=== PATIENT | female | born 1980 | race Caucasian/White ===

== ENCOUNTER 2016-02-24 11:44 | Emergency (ER) | payer OTHER ==
[~2016-02-24] VITALS: Ht 180.3 cm; Wt 80.0 kg
[~2016-02-24 11:44] MED LIST: PREN1CAP17 PO
[2016-02-24 11:46] VITALS: BP 129/62; PULSE 70; RESP 20; TEMP 98; O2SAT 97
[2016-02-24] MEDS ORDERED: PENI500T PO (12:29)
--- NOTE | 2016-02-24 12:30 | PD ---
HPI Chief Complaint: ENT Complaint Time Seen by Provider: 12:27 Travel History International Travel<30 days: No Contact w/Intl Traveler<30days: No Traveled to known affect area: No History of Present Illness HPI 35-year-old female presents to the emergency department for evaluation of a sore throat that started yesterday. Patient is unsure if she has run a fever. She has associated body aches. She denies any chronic medical problems. She takes a vitamin. Patient has a at home, but states she is not currently breast-feeding. Patient denies any other complaints at this time. PFSH Past Medical History ?: Not Social History Alcohol Use: No Tobacco Use: No Substance Use: No Allergies-Medications (Allergen,Severity, Reaction): Coded Allergies: No Known Allergies (Unverified , 02/24/16) Reported Meds & Prescriptions Reported Meds & Active Scripts Active Reported Prenate Pixie 10-0.6-0.4-200 mg ( W/O A W/ Fe Asparto G) 1 Cap Cap PO DAILY Review of Systems Except as stated in HPI: all other systems reviewed are Neg Physical Exam Narrative GENERAL: Well-developed well-nourished female patient, ambulatory. Afebrile. SKIN: Warm and dry. HEAD: Normocephalic. Atraumatic. ENT: Mucosa pink and moist. Bilateral tonsils are erythematous with exudates. No peritonsillar abscess. No uvular edema. No uvular, palatal, or tonsillar deviation. Airway patent. Nasal turbinates appear normal without nasal blood, purulent drainage or septal hematoma. Bilateral tympanic membranes are clear without erythema or perforation. EYES: No scleral icterus. No injection or drainage. NECK: Supple, trachea midline. No JVD or lymphadenopathy. CARDIOVASCULAR: Regular rate and rhythm without murmurs, gallops, or rubs. RESPIRATORY: Breath sounds equal bilaterally. No accessory muscle use. Lungs sounds are clear to auscultation. MUSCULOSKELETAL: No cyanosis, or edema. Data Data Last Documented VS Vital Signs Date Time Temp Pulse Resp B/P Pulse Ox O2 Delivery O2 Flow Rate FiO2 02/24/16 11:46 98.0 70 20 129/62 97 Room Air MDM Medical Decision Making Medical Screen Exam Complete: Yes Emergency Medical Condition: Yes Medical Record Reviewed: Yes Differential Diagnosis Strep pharyngitis versus viral pharyngitis versus URI Narrative Course 35-year-old female presents to the emergency department for evaluation of sore throat since yesterday. Physical exam reveals bilateral tonsils are erythematous with exudates. Patient will be discharged with a prescription for Pen-Vee K. She is instructed to do warm saltwater gargles and take Tylenol or ibuprofen [id number] as needed. Patient is agreeable to this plan. Diagnosis Primary Impression: Exudative pharyngitis Referrals: Primary Care Physician call for appointment Patient Instructions: General Instructions, Pharyngitis (ED) Additional Instructions: Take antibiotic as directed until gone. Warm salt water gargles. [id number] Tylenol or ibuprofen as needed for pain. Follow up with a primary care physician. Return to the emergency department for any acute worsening of symptoms. Med/Other Pt SpecificInfo: Prescription(s) given Scripts Penicillin V Potassium 500 Mg Yjh600 Mg PO Q8H 10 Days Ref 0 Prov:Pauline Ibarra 02/24/16 Disposition: 01 DISCHARGE HOME Condition: Stable Pauline Ibarra Feb 24, 2016 12:30
== END 2016-02-24 12:41 | disposition home or self-care (01) ==
LOC: NEPB 11:44
DX: J02.9 Acute pharyngitis, unspecified (principal)
CPT/HCPCS: 99283

== ENCOUNTER → 2016-03-01 | Day surgery (SDC) | payer OTHER ==
--- NOTE | 2016-02-24 12:37 | MH ---
cc: ILANA VARMA MD, LAURA C. CHAPPIUS, SUSAN DATE OF ADMISSION 03/01/2016 DATE OF 1980 REASON FOR ADMISSION Surgical sterilization HISTORY OF PRESENT ILLNESS The patient is a 35-year-old white female 3, para 3. She is approximately six weeks and wants to proceed with a tubal ligation. We discussed the options for other forms of contraception and she has made an informed choice to proceed with tubal ligation. PAST MEDICAL HISTORY Negative for heart, lung, liver disease, hypertension, diabetes, or stroke. PAST SURGICAL HISTORY Breast augmentation SOCIAL HISTORY No recent smoking. No alcohol or drugs. FAMILY HISTORY Noncontributory GYNECOLOGIC HISTORY No STD's or abnormal Pap smears. OBSTETRICAL HISTORY Three vaginal deliveries. ALLERGIES None REVIEW OF SYSTEMS As above. No chest pain, orthopnea, or PND. PHYSICAL EXAM VITAL SIGNS: She is afebrile. Vital signs are stable, blood pressure is 120/70, height 5 foot 11 inches, weight is 170, BMI is 23.4. GENERAL: The patient is alert and oriented in no acute distress. No sign of cognitive dysfunction or depression. HEENT: Within normal limits. NECK: Supple. No JVD. CHEST: Clear. HEART: Regular rate and rhythm. ABDOMEN: Soft and nontender. No hepatosplenomegaly. No CVA tenderness. PELVIC: Exam will be detailed under anesthesia. EXTREMITIES: Normal. Skin rashes. NEUROLOGIC: Nonfocal. No DVT signs. ASSESSMENT Patient with multiparity desires sterilization. We discussed options for management and treatment including reversible methods of contraception, male methods of contraception, surgical methods are discussed in detail. At this point, the patient has made an informed choice to proceed with laparoscopic tubal ligation or salpingectomy. Patient is aware of the risks, benefits and alternatives. She is aware that the failure rate is low, but no 0. She is also aware of potential surgical risks. She is also aware of the irreversibility of the procedure. Issues regarding regret are discussed and I think she is has made an informed choice to proceed. At this point, we will use DVT prophylaxis with sequential compression device and antibiotic coverage with Ancef 1 gram IV. Anticipate outpatient procedure. MD CYNTHIA Rios/KAMI /11:42 AM /12:24 PM
[~2016-03-01] VITALS: Ht 180.3 cm; Wt 79.1 kg
[~2016-03-01] MED LIST changes: +ACETAMINOPHEN 1000 MG/100 ML VIAL IV ONE; +DO NOT ADM ANY ANTICOAGULANT DRUGS XX PRN; +INSULIN HUMAN REGULAR 1,000 UNITS/10 ML VIAL SQ PRN; +KETOROLAC TROMETHAMINE 10 MG TAB PO PRN; +KETOROLAC TROMETHAMINE 30 MG/ML (IVP) VIAL IV PUSH PRN; +KETOROLAC TROMETHAMINE 60 MG/2 ML (IM) VIAL IM ONE; +LACTATED RINGER'S 1000 ML INJ 1,000 ML IV ONE; +LACTATED RINGER'S 1000 ML IV SCH; +LIDOCAINE 1%/EPINEPHrine 1:100,000 SOLN 20 ML VIAL ONE; +METOPROLOL TARTRATE 25 MG TAB PO PRN; +MIDAZOLAM HCL 2 MG/2 ML VIAL ONE; +ONDANSETRON HCL 4 MG/2 ML VIAL IV PUSH ONE; +ONDANSETRON HCL 4 MG/2 ML VIAL IV PUSH PRN; +PROPOFOL 200 MG/20 ML AMP IV ONE; +SODIUM CHLORID 0.9% 500 ML IV SCH; +SUGAMMADEX SODIUM 200 MG/2 ML VIAL IV PUSH ONE; +ceFAZolin 1,000 MG/NS 100 ML IV SCH; +fentaNYL CITRATE 250 MCG/5 ML AMP ONE
[2016-03-01 07:05] VITALS: BP 112/78; PULSE 67; RESP 16; TEMP 98.1; O2SAT 98
[2016-03-01 12:35] VITALS: BP 117/83; PULSE 55; RESP 16; TEMP 97.7; O2SAT 100
--- NOTE | 2016-03-07 14:10 | MP ---
cc: ILANA VARMA MD,VANESA SHAFER DATE OF SURGERY 03/01/2016 PREOPERATIVE DIAGNOSIS Multiparity. Desires sterilization. POSTOPERATIVE DIAGNOSES 1. Multiparity. Desires sterilization. 2. Left paratubal cyst. 3. Right ovarian cyst, simple cyst 5-cm with paratubal adhesions. 4. Elevated liver functions on preoperative lab testing. PROCEDURE 1. Laparoscopic bilateral salpingectomy. 2. Laparoscopic ovarian cystotomy. SURGEON Dr. Varma ANESTHESIA General endotracheal. BLOOD LOSS 5 cc. URINE OUTPUT 200 cc. CHEMISTRY PROFESSOR [place] staff x 1. FINDINGS External genitalia normal. POP-Q score: Aa is -2, Ap is 0. Point C is -5. Total vaginal length is 10. Genital hiatus is 10. Perineal body is 4. Uterus is retroverted, mobile. Internal anatomy shows approximately 5-cm, smooth simple cyst under the right ovary, very mobile infundibulopelvic ligament although there was no torsion noted. Tube was adhered to the ovarian cyst on the right side. There were small paratubal cysts on the left as well. Upper abdomen showed liver with perhaps some mild to moderate scarring on the capsule. The gallbladder appeared to be normal. The remainder of the pelvis was unremarkable. SPECIMENS Right and left tubes. COMPLICATIONS None. DISPOSITION To recovery room stable. COUNTS Needle and sponge counts correct. DRAINS Givens catheter. DVT PROPHYLAXIS Sequential compression device. ANTIBIOTIC PROPHYLAXIS Ancef 1 gram. DISPOSITION Recovery room stable. INTRAOPERATIVE BLOOD WORK Hepatitis panel obtained. INDICATIONS FOR PROCEDURE The patient with multiparity, desires sterilization, has failed other reversible methods of contraception, has completed childbearing. The patient has no prior history of hepatic disease, although we noted on her preoperative liver function tests that they are elevated in the low 100s. PROCEDURE PERFORMED The patient was taken to the operating room theatre, prepped and draped in a fashion appropriate for the planned procedure. She was in dorsal lithotomy position with careful attention paid to placement of legs in the stirrups to avoid undue stress to sensitive neurovascular structures. Above findings noted. Neurovascular integrity documented. Givens catheter was placed. The umbilicus was infiltrated with epinephrine lidocaine solution. A small incision was made in the umbilicus, a 5-mm scope was placed under direct visualization, gas insufflated, the above findings noted. Trendelenburg position instituted. Auxiliary trocars were placed, an 8-mm trocar suprapubically under direct visualization using a needle as a guide and on the left side, a 5-mm just above the iliac crest a trocar was placed under direct visualization. The uterus is retroverted. The left tube showed multiple small benign-appearing paratubal cysts. The ovary itself was unremarkable. The ovary was mobile. The tube on the left was taken down with harmonic energy in standard salpingectomy technique without complication. The right tube and ovary were a bit more complex. The tube was wrapped around the ovary. This ovary was approximately 5 cm, appeared to be a simple cyst but the IP ligament was quite long and there was concern for possible torsion, although there was no torsion identified at this point. The tube was removed with standard harmonic energy. The ovary was inspected with smooth outer cortex. The ovary was drained with a yellow saffron type fluid. No sign of any dermoid or any mucinous component. The internal capsule had a retina-like appearance, very benign appearing and, in light of the patient's age and benign-appearing nature, the ovary was not removed. Hemostasis was confirmed with reduction of gas pressure. We did place hemostatic powder for reassurance. The upper abdomen was imaged or was inspected in light of her elevated liver functions. The liver capsule appeared to be mild to moderately scarred but the gallbladder appeared to be normal and we obtained intraoperative hepatitis panel blood work. The patient's incisions were closed 4-0 Monocryl and Dermabond. The patient was reversed from anesthesia, taken to the recovery room in stable condition. We will check the results of the hepatitis panel and refer her as need be based on findings. MD CYNTIHA Rios/FRANKLIN /11:12 AM /1:54 PM
== END | disposition home or self-care (01) ==
LOC: HSDC 06:55
PROVIDERS: ATTEND Obstetrics & Gynecology Gynecology
DX: Z30.2 Encounter for sterilization (principal); N83.8 Other noninflammatory disorders of ovary, fallopian tube and broad ligament; N83.291 Other ovarian cyst, right side
CPT/HCPCS: 00840; 58661; 58679; 80074; 84703; 88302; J0131; J0690; J1885; J2250; J2405; J3010; J7120

== ENCOUNTER 2016-03-03 16:45 | Emergency (ER) | payer OTHER ==
[~2016-03-03] VITALS: Ht 180.3 cm; Wt 80.0 kg
[~2016-03-03 16:45] MED LIST changes: -ACETAMINOPHEN 1000 MG/100 ML VIAL IV ONE; -DO NOT ADM ANY ANTICOAGULANT DRUGS XX PRN; -INSULIN HUMAN REGULAR 1,000 UNITS/10 ML VIAL SQ PRN; -KETOROLAC TROMETHAMINE 10 MG TAB PO PRN; -KETOROLAC TROMETHAMINE 30 MG/ML (IVP) VIAL IV PUSH PRN; -KETOROLAC TROMETHAMINE 60 MG/2 ML (IM) VIAL IM ONE; -LACTATED RINGER'S 1000 ML INJ 1,000 ML IV ONE; -LACTATED RINGER'S 1000 ML IV SCH; -LIDOCAINE 1%/EPINEPHrine 1:100,000 SOLN 20 ML VIAL ONE; -METOPROLOL TARTRATE 25 MG TAB PO PRN; -MIDAZOLAM HCL 2 MG/2 ML VIAL ONE; -ONDANSETRON HCL 4 MG/2 ML VIAL IV PUSH ONE; -ONDANSETRON HCL 4 MG/2 ML VIAL IV PUSH PRN; -PROPOFOL 200 MG/20 ML AMP IV ONE; -SODIUM CHLORID 0.9% 500 ML IV SCH; -SUGAMMADEX SODIUM 200 MG/2 ML VIAL IV PUSH ONE; -ceFAZolin 1,000 MG/NS 100 ML IV SCH; -fentaNYL CITRATE 250 MCG/5 ML AMP ONE
[2016-03-03 16:47] VITALS: BP 133/78; PULSE 55; RESP 20; TEMP 97.6; O2SAT 98
[2016-03-03 17:27] LABS: AUTOMATED NEUTROPHIL # 3.9 TH/MM3 (1.8-7.7); BASOPHIL % 0.6 % (0.0-2.0); EOSINOPHIL # 0.1 TH/MM3 (0-0.4); EOSINOPHIL % 2.4 % (0.0-4.0); HEMATOCRIT 36.1 % (35.0-46.0); HEMO FLAGS DIFF FINAL; LYMPH % 25.9 % (9.0-44.0); LYMPHOCYTE # 1.6 TH/MM3 (1.0-4.8); MEAN CELL VOLUME 91.1 FL (80.0-100.0); MEAN CORPUSCULAR HEMOGLOBIN 30.4 PG (27.0-34.0); MEAN CORPUSCULAR HGB CONC 33.4 % (32.0-36.0); MONO % 7.2 % (0.0-8.0); NEUT % 63.9 % (16.0-70.0); PLATELET COUNT 228 TH/MM3 (150-450); RED BLOOD COUNT 3.96 MIL/MM3 (4.00-5.30); RED CELL DISTRIBUTION WIDTH 13.1 % (11.6-17.2); WHITE BLOOD COUNT 6.1 TH/MM3 (4.0-11.0)
[2016-03-03 17:33] LABS: APTT (PATIENT) 25.4 SEC (24.3-30.1); PROTHROMBIN TIME - PATIENT 10.5 SEC (9.8-11.6)
[2016-03-03 17:52] LABS: ANION GAP 8 MEQ/L (5-15); AST (GOT) 39 U/L (15-37); BICARBONATE 28.9 MEQ/L (21.0-32.0); BLOOD UREA NITROGEN 19 MG/DL (7-18); CHLORIDE 104 MEQ/L (98-107); GLOMERULAR FILTRATION RATE 37 ML/MIN (>89); POTASSIUM 3.9 MEQ/L (3.5-5.1); SODIUM (NA) 141 MEQ/L (136-145)
[2016-03-03 17:56] LABS: ALKALINE PHOSPHATASE 90 U/L (45-117); ALT (GPT) 83 U/L (10-53); TOTAL BILIRUBIN ADULT 0.3 MG/DL (0.2-1.0)
--- NOTE | 2016-03-03 19:11 | PD ---
HPI Chief Complaint: Processing Technician Problem/Complaint Time Seen by Provider: 19:01 Travel History International Travel<30 days: No Contact w/Intl Traveler<30days: No Traveled to known affect area: No History of Present Illness HPI 35-year-old female complains of vaginal bleeding. Patient status post vaginal delivery 7 weeks ago. Patient status post tubal ligation 2 days ago. Patient states that he started having heavy vaginal bleeding since yesterday. Patient denies any abdominal pain or cramping. Patient denies fever chills. Patient denies any headache. Patient denies chest pain or shortness of breath. Patient denies any back pain. Patient states that she had light menstruation period prior to tubal ligation. PFS Past Medical History Medical History: Denies Significant Hx Cancer: No Cardiovascular Problems: No Diabetes: No Diminished Hearing: No Endocrine: No Genitourinary: No Hepatitis: No Hiatal Hernia: No Immune Disorder: No Musculoskeletal: No Neurologic: No Psychiatric: No Reproductive: No Respiratory: No Thyroid Disease: No ?: Not : 3 Para: 3 Tubal Ligation: Yes (03/01/15) Past Surgical History Abdominal Surgery: No AICD: No Cardiac Surgery: No Ear Surgery: No Endocrine Surgery: No Eye Surgery: No Genitourinary Surgery: No Gynecologic Surgery: No Joint Replacement: No Oral Surgery: Yes (WISDOM TEETH) Pacemaker: No Thoracic Surgery: Yes (breast augmentation) Social History Alcohol Use: Yes (OCCASSIONAL) Tobacco Use: No Substance Use: No Allergies-Medications (Allergen,Severity, Reaction): Coded Allergies: No Known Allergies (Unverified , 03/07/16) Reported Meds & Prescriptions Reported Meds & Active Scripts Active Reported Prenate Pixie 10-0.6-0.4-200 mg ( W/O A W/ Fe Asparto G) 1 Cap Cap PO DAILY Review of Systems General / Constitutional: No: Fever Eyes: No: Visual changes HENT: No: Headaches Cardiovascular: No: Chest Pain or Discomfort Respiratory: No: Shortness of Breath Gastrointestinal: No: Abdominal Pain Genitourinary: Positive: Vaginal Bleeding, No: Dysuria Musculoskeletal: No: Pain Skin: No Rash Neurologic: No: Weakness Psychiatric: No: Depression Endocrine: No: Polydipsia Hematologic/Lymphatic: No: Easy Bruising Physical Exam Narrative GENERAL: Well-nourished, well-developed patient. SKIN: Warm and dry. HEAD: Normocephalic. EYES: No scleral icterus. No injection or drainage. NECK: Supple, trachea midline. No JVD or lymphadenopathy. CARDIOVASCULAR: Regular rate and rhythm without murmurs, gallops, or rubs. RESPIRATORY: Breath sounds equal bilaterally. No accessory muscle use. GASTROINTESTINAL: Abdomen soft, non-tender, nondistended. MUSCULOSKELETAL: No cyanosis, or edema. BACK: Nontender without obvious deformity. No CVA tenderness. Neurologic exam normal. Data Data Last Documented VS Vital Signs Date Time Temp Pulse Resp B/P Pulse Ox O2 Delivery O2 Flow Rate FiO2 03/03/16 16:47 97.6 55 20 133/78 98 Orders Complete Blood Count With Diff (03/03/16 17:00) Ed Urine Pregnancytest Poc (03/03/16 17:00) Comprehensive Metabolic Panel (03/03/16 17:00) Prothrombin Time / Inr (Pt) (03/03/16 17:00) Act Partial Throm Time (Ptt) (03/03/16 17:00) Type And Screen (03/03/16 17:00) Labs Laboratory Tests Test 03/03/16 17:00 White Blood Count 6.1 TH/MM3 Red Blood Count 3.96 MIL/MM3 Hemoglobin 12.1 GM/DL Hematocrit 36.1 % Mean Corpuscular Volume 91.1 FL Mean Corpuscular Hemoglobin 30.4 PG Mean Corpuscular Hemoglobin 33.4 % Concent Red Cell Distribution Width 13.1 % Platelet Count 228 TH/MM3 Mean Platelet Volume 9.0 FL Neutrophils (%) (Auto) 63.9 % Lymphocytes (%) (Auto) 25.9 % Monocytes (%) (Auto) 7.2 % Eosinophils (%) (Auto) 2.4 % Basophils (%) (Auto) 0.6 % Neutrophils # (Auto) 3.9 TH/MM3 Lymphocytes # (Auto) 1.6 TH/MM3 Monocytes # (Auto) 0.4 TH/MM3 Eosinophils # (Auto) 0.1 TH/MM3 Basophils # (Auto) 0.0 TH/MM3 CBC Comment DIFF FINAL Differential Comment Prothrombin Time 10.5 SEC Prothromb Time International 1.0 RATIO Ratio Activated Partial 25.4 SEC Thromboplast Time Sodium Level 141 MEQ/L Potassium Level 3.9 MEQ/L Chloride Level 104 MEQ/L Carbon Dioxide Level 28.9 MEQ/L Anion Gap 8 MEQ/L Blood Urea Nitrogen 19 MG/DL Creatinine 1.61 MG/DL Estimat Glomerular Filtration 37 ML/MIN Rate Random Glucose 73 MG/DL Calcium Level 9.0 MG/DL Total Bilirubin 0.3 MG/DL Aspartate Amino Transf 39 U/L (AST/SGOT) Alanine Aminotransferase 83 U/L (ALT/SGPT) Alkaline Phosphatase 90 U/L Total Protein 8.0 GM/DL Albumin 4.0 GM/DL Blood Type O NEGATIVE Antibody Screen NEGATIVE MDM Medical Decision Making Medical Screen Exam Complete: Yes Emergency Medical Condition: Yes Differential Diagnosis Differential diagnosis including menorrhagia, threatened AB, ectopic . Narrative Course 35-year-old female with heavy vaginal bleeding. Status post vaginal delivery 7 weeks ago. Status post tubal ligation 2 days ago. Patient's vital signs stable. CBC within normal limit. Hemoglobin 12.1 hematocrit 36.1. Diagnosis Primary Impression: Menorrhagia Qualified Code: N92.1 - Menorrhagia with irregular cycle Patient Instructions: General Instructions Additional Instructions: vitamins as directed. Encouraged by mouth fluid. 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 Return if persistent excessive bleeding. Med/Other Pt SpecificInfo: No Change to Meds Disposition: 01 DISCHARGE HOME Condition: Stable Jermaine Lopez MD Mar 03, 2016 19:11
== END 2016-03-03 19:51 | disposition home or self-care (01) ==
LOC: NEPA 16:45
DX: N92.1 Excessive and frequent menstruation with irregular cycle (principal)
CPT/HCPCS: 80053; 85025; 85610; 85730; 86850; 86900; 86901; 99283